=== PATIENT | female | born 1945 | race Caucasian/White ===

== ENCOUNTER 2016-12-07 03:04 | Inpatient (IN) ==
[2016-12-02 09:30] LABS: MANUAL DIFF NEEDED? NO; URINE MICRO REVIEW NEEDED? NO; URINE SOURCE CLEAN CATCH
[2016-12-02 09:35] LABS: BASO% 0.9 % (0.0-0.8); EOS# 0.23 X1000 (0.0-0.7); EOS% 3.6 % (0.0-10.0); HEMATOCRIT 45.4 % (37.0-47.0); HEMOGLOBIN 15.3 g/dL (12.0-16.0); LYMPH# 2.15 X1000 (1.2-3.4); LYMPH% 33.2 % (20.5-51.1); MCH 31.4 PG (27-31); MCHC 33.7 g/dL (33-37); MONO# 0.59 X1000 (0.11-0.59); MONO% 9.1 % (1.7-9.3); MPV 9.9 FL (7.4-10.4); NEUT% 53.2 % (42.2-75.2); PLT 225 X1000 (130-400); RBC 4.88 XMIL (4.2-5.4)
[2016-12-02 09:37] LABS: BILIRUBIN URINE NEGATIVE (NEGATIVE); BLOOD URINE NEGATIVE (NEGATIVE); COLOR YELLOW; GLUCOSE URINE NEGATIVE (NEGATIVE); LEUKOCYTES URINE NEGATIVE (NEGATIVE); NITRITE URINE NEGATIVE (NEGATIVE); PH URINE 5.5; PROTEIN URINE TRACE mg/dL (NEGATIVE); TURBIDITY URINE CLEAR (CLEAR); UR EPITHELIAL CELLS <10 /HPF (<10); URINE BACTERIA NEGATIVE /HPF; URINE RBC <10 /HPF (<10); URINE WBC <10 /HPF (<10); UROBILINOGEN URINE NORMAL (NORMAL)
[2016-12-02 09:45] LABS: INR 1.02; PROTIME 10.7 Seconds (9.2-11.7); PTT 25.3 Seconds (22.0-36.0)
[2016-12-02 10:14] LABS: AGAP 12; BUN 21 mg/dL (8-22); CALCIUM 9.6 mg/dL (8.8-10.2); CHLORIDE 98 mmol/L (98-107); COSMO 277; POTASSIUM 3.1 mmol/L (3.5-5.1); SODIUM 137 mmol/L (136-145); TCO2 27 mmol/L (25-35)
--- NOTE | 2016-12-02 11:51 | EKG Report ---
Test Performed on : 12/02/2016 08:40:07 AM Test Reason : PAT Blood Pressure : / mmHG Vent. Rate : 061 BPM Atrial Rate : 061 BPM P-R Int : 166 ms QRS Dur : 088 ms QT Int : 416 ms P-R-T Axes : 045 -05 046 degrees QTc Int : 418 ms Normal sinus rhythm. Normal ECG When compared with ECG of 16-MAY-2007 13:25, Questionable change in QRS axis Confirmed by aJime Koch MD ([id number]) on 12/03/2016 3:25:36 PM
[2016-12-07] MEDS ORDERED: NORCO-10 PO PRN (06:47)
[2016-12-07] MEDS ORDERED: DEMEROL IV PRN (06:48)
[2016-12-07] MEDS ORDERED: VITAMIN D PO SCH (07:00)
[2016-12-07] MEDS ORDERED: NORVASC PO SCH (09:00)
[2016-12-07] MEDS ORDERED: ZANTAC PO SCH (09:00)
[2016-12-07] MEDS ORDERED: MOBIC PO SCH (09:00)
[2016-12-07] MEDS ORDERED: REQUIP PO SCH (09:00)
[2016-12-07] MEDS ORDERED: PEPCID ONE (09:09)
[2016-12-07] MEDS ORDERED: REGLAN ONE (09:09)
[2016-12-07] MEDS ORDERED: KEFZOL 2 GM/D5W 2 GM/50 ML IVPB ONE (09:11)
[2016-12-07] MEDS ORDERED: LYRICA ONE (09:11)
[2016-12-07] MEDS ORDERED: LR 1,000 ML ONE ×2 (09:11→13:22)
[2016-12-07] MEDS ORDERED: CELEBREX ONE (09:15)
--- NOTE | 2016-12-07 09:20 | HISTORY AND PHYSICAL ---
CHIEF COMPLAINT: Left hip pain. HISTORY OF PRESENT ILLNESS: Ms. Horner is a 71-year-old, white female, who has experienced progressive left hip pain for some time. Radiographic evaluation of the hip reveals findings consistent with advanced degenerative joint disease. Despite conservative therapy, she still has significant reduction in her ability to conduct her normal daily activities. She will be admitted at this time for a left anterior total hip arthroplasty. Primary care provider is Dr. Maikol Jack. ALLERGIES: 1. Morphine. 2. Bactrim. 3. Levaquin. PAST MEDICAL HISTORY: 1. Osteoarthritis. 2. Hypertension. 3. Gastroesophageal reflux disease. 4. Insomnia. PAST SURGICAL HISTORY: 1. Hysterectomy. 2. Cystocele repair. 3. Bilateral cataract surgery. 4. Right total hip arthroplasty. SOCIAL HISTORY: The patient is a nonsmoker. She is a . She maintains a home with her daughter. CURRENT MEDICATIONS: 1. Zantac 150 daily. 2. [place] 5 one tablet by mouth as necessary. 3. Vitamin D supplement 50,000 units by mouth every week. 4. Diphenhydramine 25 at bedtime. 5. Requip 1 mg daily. 6. Meloxicam 7.5 mg daily. 7. Norvasc 10 mg daily. 8. Lipitor 20 mg daily at bedtime. REVIEW OF SYSTEMS: HEENT: No known history of stroke or cerebrovascular disease. Denies any interval health change. Cardiac: She is treated for high blood pressure. No history of coronary artery disease or valvular heart disease. Denies chest pain, or other anginal equivalents. Pulmonary: The patient is a nonsmoker with no chronic lung disease. Gastrointestinal: She is treated for acid reflux. Denies any recent unexplained weight loss or weight gain. Genitourinary: Denies kidney or bladder infection or dysfunction. Neurological: She takes medicine for insomnia periodically. Musculoskeletal: She is here today for management of her osteoarthritic left hip. She has previously underwent a right total hip arthroplasty. She also has a history of degenerative disk disease of the spine. PHYSICAL EXAMINATION: GENERAL: The patient is resting comfortably. She is articulate and able to answer all questions fully. HEENT: Head is normocephalic and atraumatic. Pupils are equal and round. Nares are patent. Throat without exudate. NECK: Supple. HEART: Regular rate and rhythm. No murmurs, gallops, or rubs. LUNGS: Clear to auscultation bilaterally. ABDOMEN: Round. Bowel sounds are present. It is nontender. GENITOURINARY: Not examined. NEUROLOGICAL: She has good motor function of the left hip. MUSCULOSKELETAL: Left hip with no gross deformity, edema or ecchymosis. She has a good peripheral pulse. IMPRESSION: Degenerative joint disease of the left hip. PLAN: Left anterior total hip arthroplasty. The risks and benefits of surgery were explained to the patient, including the risk of anesthesia, , bleeding, infection, blood clots, damage to tendons, ligaments, nerves and blood vessels, the possibility of other imponderables were discussed, and she wishes to proceed with operative management at this time. Dictated by AMY Haas for Blayne Haas MD cc: AMY Haas MD
[2016-12-07] MEDS: CELEBREX ONE ×2 (09:29→09:33)
[2016-12-07] MEDS ORDERED: MARCAINE 0.25% PF/EPI 1:200,000 ONE (10:35)
[2016-12-07] MEDS ORDERED: TORADOL ONE (10:35)
[2016-12-07] MEDS ORDERED: SODIUM CHLORIDE 0.9% ONE (10:36)
[2016-12-07] MEDS ORDERED: CYKLOKAPRON 1,000 MG/NS 1,000 MG/100 ML IVPB ONE (10:36)
[2016-12-07] MEDS ORDERED: NEOSPORIN G.U. IRRIGANT ONE (10:36)
[2016-12-07] MEDS ORDERED: EXPAREL 1.3% ONE (10:36)
[2016-12-07 11:52] LABS: URINE MICRO REVIEW NEEDED? NO; URINE SOURCE CATH
[2016-12-07 12:00] LABS: BILIRUBIN URINE NEGATIVE (NEGATIVE); BLOOD URINE NEGATIVE (NEGATIVE); COLOR YELLOW; GLUCOSE URINE NEGATIVE (NEGATIVE); LEUKOCYTES URINE NEGATIVE (NEGATIVE); NITRITE URINE NEGATIVE (NEGATIVE); PH URINE 6.5; PROTEIN URINE NEGATIVE (NEGATIVE); SP GRAVITY URINE 1.016; TURBIDITY URINE CLEAR (CLEAR); UROBILINOGEN URINE 2 mg/dL (NORMAL)
[2016-12-07 12:03] LABS: UR EPITHELIAL CELLS <10 /HPF (<10); URINE BACTERIA NEGATIVE /HPF; URINE RBC <10 /HPF (<10); URINE WBC <10 /HPF (<10)
[2016-12-07] MEDS ORDERED: ROBINUL ONE (13:22)
[2016-12-07] MEDS ORDERED: XYLOCAINE-MPF 2% ONE (13:22)
[2016-12-07] MEDS ORDERED: DECADRON ONE (13:22)
[2016-12-07] MEDS ORDERED: OFIRMEV 1000 MG/ISOTONIC SOLN 1,000 MG/100 ML BOTTLE ONE (13:22)
[2016-12-07] MEDS ORDERED: ZOFRAN ONE (13:22)
[2016-12-07] MEDS ORDERED: DIPRIVAN 1% ONE (13:25)
[2016-12-07] MEDS ORDERED: NS 1,000 ML ONE (14:11)
--- NOTE | 2016-12-07 14:12 | OPERATIVE NOTE ---
PROCEDURE DATE: 12/07/2016 PREOPERATIVE DIAGNOSIS: Degenerative joint disease, left hip. POSTOPERATIVE DIAGNOSIS: Degenerative joint disease, left hip. PROCEDURE: Left anterior hip replacement. SURGEON: Yamil Haas MD. DIRECTOR COMPLIANCE: MIREYA Leal. ANESTHESIA: General. COMPLICATION: None. PROCEDURE IN DETAIL: This 71-year-old female presents for a left anterior hip replacement. Risks, benefits, and no guarantees were discussed, and she is willing to proceed. She was taken to the operating room and satisfactory anesthesia obtained. She was placed on the [place] table and the left hip prepped and draped in usual sterile fashion. A time-out was taken to confirm operative site, procedure, and patient. The hip was then approached through an anterior approach starting 1 cm lateral and distal to the anterior superior iliac spine. The incision was carried down through the tensor fascia which was split in line with the incision. Blunt dissection along the inner membrane was then undertaken down to the anterior hip capsule. Retractors were placed over the superior and inferior aspects of the femoral neck and a capsulotomy incision made. A femoral neck osteotomy was then made and the femoral head removed. Retractors were placed over the acetabulum and sequential reaming of the acetabulum undertaken up to a size 49 reamer. Under fluoroscopic guidance, a 50 outer diameter Holt DuoFix HERNANDEZ coated cup was impacted in the acetabulum in roughly 45 degrees of abduction and 10 degrees of anteversion. This had secure initial fixation. An additional 25 length screw was placed in the cup for additional stability. A polyethylene liner to accommodate a 32 head was then placed into the acetabulum and impacted with secure fixation. The [place] table was then used to extend and externally rotate the femur for broaching the proximal femur. Sequential broaching of the femur was undertaken up to a size 9 high offset [place] stem. High offset geometry revealed the best stability. The leg was significantly short from femoral head erosion preoperatively and a +13 neck length was utilized to restore leg length. The trial implant was removed and a size 9 high offset [place] stem impacted in the proximal femur with secure axial and rotational stability. A +13 neck length 32 head was then impacted onto the stem and the hip reduced. Final range of motion revealed no anterior or posterior instability with no significant excessive tightening. The C-arm was used to verify accurate hardware placement as well as uatsdin of leg lengths on the AP pelvis and measurement from the lesser tuberosity along the inferior pubic rami. The wound was copiously irrigated and the joint capsule injected with Exparel. A Hemovac drain was placed. The fascia of the tensor was repaired with a running 0 Vicryl, the subcutaneous with 2-0 Vicryl, and the skin with skin chet. Sterile dressings completed the closure, and the patient was recovered from anesthesia and transferred to recovery room in stable condition. No intraoperative complications were noted. Instrument count and sponge count was correct at the time of closure. cc: Blayne Haas MD
[2016-12-07] MEDS ORDERED: CYKLOKAPRON 1,000 MG in NS 100 ML IV ONE (17:00)
[2016-12-07] MEDS: KEFZOL 1 GM/D5W 1 GM/50 ML IVPB IV SCH (18:51)
[2016-12-07] MEDS ORDERED: LIPITOR PO SCH (21:00)
[2016-12-07] MEDS ORDERED: BENADRYL PO SCH (21:00)
[2016-12-07] MEDS: NS 1,000 ML IV SCH (21:01)
[2016-12-07] MEDS: COLACE PO SCH (21:01)
[2016-12-07] MEDS: PERIDEX MT SCH (21:01)
[2016-12-07] MEDS: REQUIP PO SCH (21:01)
[2016-12-08] MEDS: NS 1,000 ML IV SCH (00:46)
[2016-12-08] MEDS: KEFZOL 1 GM/D5W 1 GM/50 ML IVPB IV SCH (02:44)
[2016-12-08 05:40] LABS: HEMOGLOBIN 10.9 g/dL (12.0-16.0)
[2016-12-08] MEDS: NORCO-10 PO PRN ×3 (05:55→16:22)
[2016-12-08] MEDS ORDERED: XARELTO PO SCH (06:00)
[2016-12-08 06:06] LABS: AGAP 11; BUN 14 mg/dL (8-22); CALCIUM 8.2 mg/dL (8.8-10.2); CHLORIDE 103 mmol/L (98-107); COSMO 282; POTASSIUM 3.5 mmol/L (3.5-5.1); SODIUM 140 mmol/L (136-145); TCO2 26 mmol/L (25-35)
[2016-12-08] MEDS: REQUIP PO SCH (09:58)
[2016-12-08] MEDS: COLACE PO SCH (09:58)
[2016-12-08] MEDS: PERIDEX MT SCH (09:59)
[2016-12-08 11:55] VITALS: BP 131/48
--- NOTE | 2016-12-09 11:37 | DISCHARGE SUMMARY ---
ADMISSION DATE: 12/07/2016 DISCHARGE DATE: 12/08/2016 ADMITTING DIAGNOSIS: Degenerative joint disease of the left hip. INCOMPLETE REPORT - DICTATION ENDS HERE. Dictated by MIREYA Chirinos for Blayne Haas MD cc: MIREYA Chirinos MD
--- NOTE | 2016-12-09 15:36 | DISCHARGE SUMMARY ---
ADMISSION DATE: 12/07/2016 DISCHARGE DATE: 12/08/2016 FAMILY PHYSICIAN: Dr. Maikol Jack. ADMITTING DIAGNOSES: Degenerative joint disease of the left hip. ADDITIONAL DIAGNOSES: 1. Osteoarthritis. 2. Primary essential hypertension. 3. Gastroesophageal reflux disease. 4. Insomnia. DISCHARGE DIAGNOSIS: Degenerative joint disease of the left hip status post left anterior total hip arthroplasty. ADMITTING HISTORY AND HOSPITAL COURSE: Ms. Horner is a 71-year-old, white female, who had been experiencing progressive left hip pain for some time. Radiographic evaluation of the hip reveals findings consistent with advanced degenerative joint disease. Despite conservative therapy she still had a significant reduction in her ability to conduct her normal daily activities so she presented on 12/07/2016 for a left anterior total hip arthroplasty by Dr. Dave Haas. Surgery went very well and postoperatively she progressed very quickly. At this time she has already ascended and descended a flight of stairs and she has already walked 250 feet with a front wheel walker and with contact guard assist only. Her dressing is clean, dry, and intact. Her incision is free of erythema or drainage. Her pain is under control and at this time we will plan to discharge her home with home health physical therapy. DISCHARGE VITAL SIGNS: Temperature is 98.3 degrees, pulse is 65, respiration rate is 16, blood pressure is 131/48, and she is 94% on room air. DISCHARGE LAB DATA: Her hemoglobin and hematocrit is 10.9 and 33. DISCHARGE MEDICATIONS: 1. [place] 10 mg 1-2 tabs p.o. q.4 hours p.r.n. pain. 2. Norvasc 10 mg p.o. daily. 3. Lipitor 20 mg p.o. at bedtime. 4. Vitamin D 55718 units p.o. every 7 days. 5. Zantac 150 mg p.o. daily. 6. Xarelto 10 mg p.o. q.24 hours for the next 21 days. 7. Requip 1 mg p.o. daily. DISCHARGE INSTRUCTIONS: Ms. Horner is being discharged home with home health physical therapy today. I have discussed her discharge medications with her including her Xarelto, a blood thinner for the next 21 days as well as her [place] for pain. I have given her strict instructions on incisional care which includes no tub baths, and to shower daily. She has been informed to call with any signs and symptoms of infection to the incision such as redness or drainage. I have also discussed the importance of physical therapy with her and to increase her mobilization and ambulation. She has been given a followup appointment with Dr. Haas in about 10 days at which time, she will have her chet out. If she or family have any questions or concerns regarding her care she is encouraged to call the [facility]. Dictated by MIREYA Chirinos for Blayne Haas MD cc: MIREYA Chirinos MD
== END 2016-12-08 16:28 | disposition home health service (06) ==
LOC: SURHOLD 03:04 → 4N 14:10
PROVIDERS: ADMIT Orthopaedic Surgery Adult Reconstructive Orthopaedic Surgery; ATTEND Orthopaedic Surgery Adult Reconstructive Orthopaedic Surgery